=== PATIENT | female | born 1950 | race Caucasian/White ===

== ENCOUNTER 2025-04-19 01:53 | Outpatient (CLI) | payer MEDICARE, SELFPAY ==
[2025-04-19] MEDS: Normal Saline - Diluent 50 ML VIAL IJ (11:12)
[2025-04-19] MEDS: Gadoterate meglumine 20 ML VIAL IVP (11:13)
--- NOTE | 2025-04-19 11:45 | DI.MRI_ITS ---
Exam(s) MR ABDOMEN WO/W EXAM: MR ABDOMEN WO/W CLINICAL HISTORY: Diffusely increased hepatic echogenicity and coarsened echotexture, mild TECHNIQUE: Multiplanar multisequence MRI of the Abdomen was performed. MRCP sequences also performed. CONTRAST MATERIAL: IV Contrast: 14 mL of Dotarem contrast administered. COMPARISON: US US Abdomen Complete from 03/08/2025 FINDINGS: The exam is mildly limited by motion. Lung bases: Unremarkable. Liver: No focal mass. 16 cm in length. Pancreas: Unremarkable. Gallbladder and Bile Ducts: Status post cholecystectomy. Dilatation of the common duct to 9 millimeters. It tapers in the pancreatic head. Mild intrahepatic biliary dilatation mainly of the left lobe. No filling defects. Pancreatic duct measures 3 millimeters. Adrenals: Unremarkable. Kidneys: Unremarkable. Spleen: Unremarkable. Aorta: Unremarkable. Soft Tissues: Metallic artifacts in the right upper quadrant anterior abdominal wall, presumably metallic sutures or gio. Bone: Unremarkable. Lymph Nodes: Unremarkable. Stomach and bowel: There is a diverticulum of the 2nd portion of the duodenum measuring roughly 3 by 2 by 4 cm. Peritoneal cavity: Unremarkable. No evidence of ascites. IMPRESSION: No evidence of liver mass. Status post cholecystectomy. Mild intra and extrahepatic biliary dilatation. Mild dilatation of the pancreatic duct. No evidence of pancreatic mass. Diverticulum of the 2nd portion of the duodenum. DATA REPOSITORY:
== END 2025-04-19 02:13 ==
PROVIDERS: PCP Family Medicine; Visit Provider Family Medicine
DX: R74.8 Abnormal levels of other serum enzymes (principal); K86.89 Other specified diseases of pancreas
CPT/HCPCS: 74183